=== PATIENT | male | born 1940 | race Caucasian/White ===

== ENCOUNTER 2022-07-17 18:45 | Inpatient (IN) | payer MEDICARE ==
[~2022-07-17] VITALS: Ht 175.3 cm; Wt 68.5 kg
[~2022-07-17 18:45] MED LIST: FLONASE16 GM INH; LEVOTHYROXINE75 MCG PO; METAMUCIL PACK1 EACH PO; MULTI-VITAMIN1 EACH PO; PAXIL10 MG PO; PHENERGAN50 MG/1 ML IM; SENNA LAXATIVE8.6 MG PO; VIAGRA100 MG PO; VITAMIN D400 UNIT PO
[2022-07-17] MEDS ORDERED: ONDANSETRON HCL INJ 2MG/ML 2ML 2 MG/ML VIAL IV STA (19:15)
[2022-07-17 19:25] LABS: BASOPHILS % 0.1 % (0.0-1.0); EOSINOPHILS % 0.2 % (0.0-6.0); HEMATOCRIT 45.5 % (38.2-49.6); HEMOGLOBIN 14.9 g/dL (14.0-18.0); LYMPHOCYTES # (AUTO) 0.3 (1.0-3.2); LYMPHOCYTES % 3.3 % (18.0-39.1); MEAN CORPUSCULAR HEMOGLOBIN 30.8 pg (28-32); MEAN CORPUSCULAR HGB CONC 32.7 g/dL (31-35); MEAN CORPUSCULAR VOLUME 94.2 fL (81-99); MONOCYTES # (AUTO) 0.8 (0.2-0.8); MONOCYTES % 9.9 % (4.4-11.3); NEUTROPHILS # (AUTO) 7.3 (2.1-6.9); PLATELET COUNT 170 x10e3/uL (140-360); RED BLOOD COUNT 4.83 x10e6/uL (4.3-5.7); RED CELL DISTRIBUTION WIDTH 12.4 % (11.7-14.4)
[2022-07-17 19:36] LABS: INR 1.06
[2022-07-17 19:37] LABS: PARTIAL THROMBOPLASTIN TIME 30.1 seconds (23.8-35.5)
[2022-07-17 19:44] LABS: ALBUMIN 4.2 g/dL (3.5-5.0); ALBUMIN/GLOBULIN RATIO 1.8 (0.8-2.0); ANION GAP 13.1 mmol/L (8-16); CALCIUM 9.2 mg/dL (8.4-10.2); CREATININE, SERUM 1.05 mg/dL (0.72-1.25); POTASSIUM 4.1 mmol/L (3.5-5.1)
[2022-07-17 19:52] LABS: CLARITY,URINE CLEAR (CLEAR); COLOR,URINE YELLOW (YELLOW); KETONES,URINE NEGATIVE (NEGATIVE); LEUKOCYTE ESTERASE ,URINE NEGATIVE (NEGATIVE); NITRITE,URINE NEGATIVE (NEGATIVE); PROTEIN,URINE DIPSTICK TRACE (NEGATIVE)
[2022-07-17] MEDS ORDERED: IOPAMIDOL 370 MG/ML 100 ML INFUS..BTL INJ ONE (20:10)
[2022-07-17] MEDS ORDERED: ONDANSETRON HCL INJ 2MG/ML 2ML 2 MG/ML VIAL IV PRN (21:30)
[2022-07-17] MEDS ORDERED: Morphine 2mg Syringe 2 MG/ML SYR IV PRN (21:30)
[2022-07-17] MEDS: SODIUM CHLORIDE 0.9% 1000ML 1,000 ML IV SCH (21:36)
[2022-07-18 05:38] LABS: BASOPHILS % 0.1 % (0.0-1.0); EOSINOPHILS % 0.4 % (0.0-6.0); HEMATOCRIT 44.2 % (38.2-49.6); HEMOGLOBIN 14.4 g/dL (14.0-18.0); LYMPHOCYTES # (AUTO) 0.6 (1.0-3.2); LYMPHOCYTES % 8.6 % (18.0-39.1); MEAN CORPUSCULAR HEMOGLOBIN 30.7 pg (28-32); MEAN CORPUSCULAR HGB CONC 32.6 g/dL (31-35); MEAN CORPUSCULAR VOLUME 94.2 fL (81-99); MONOCYTES # (AUTO) 1.2 (0.2-0.8); NEUTROPHILS # (AUTO) 5.1 (2.1-6.9); NEUTROPHILS % 73.6 % (38.7-80.0); PLATELET COUNT 162 x10e3/uL (140-360); RED BLOOD COUNT 4.69 x10e6/uL (4.3-5.7); RED CELL DISTRIBUTION WIDTH 12.6 % (11.7-14.4)
[2022-07-18 06:00] LABS: ANION GAP 13.4 mmol/L (8-16); CALCIUM 8.8 mg/dL (8.4-10.2); POTASSIUM 4.4 mmol/L (3.5-5.1)
[2022-07-18 08:40] VITALS: BP 123/70
[2022-07-18 09:00] VITALS: BP 123/70
[2022-07-18] MEDS: SODIUM CHLORIDE 0.9% 1000ML 1,000 ML IV SCH ×2 (09:43→21:01)
[2022-07-18 12:09] VITALS: BP 114/59
[2022-07-18 15:11] VITALS: BP 127/68
[2022-07-18] MEDS: FAMOTIDINE 20 MG/2 ML VIAL IV SCH (16:00)
[2022-07-18] MEDS ORDERED: SENNA LAXATIVE8.6 MG PO (19:12)
[2022-07-18 20:00] VITALS: BP 131/76
[2022-07-18] MEDS: LEVOFLOXACIN 500MG/D5W 100ML 100 ML IV SCH (20:58)
[2022-07-19 04:58] LABS: BASOPHILS % 0.4 % (0.0-1.0); EOSINOPHILS % 0.4 % (0.0-6.0); LYMPHOCYTES # (AUTO) 0.5 (1.0-3.2); MEAN CORPUSCULAR VOLUME 88.7 fL (81-99); MONOCYTES # (AUTO) 1.1 (0.2-0.8); MONOCYTES % 24.7 % (4.4-11.3); NEUTROPHILS # (AUTO) 2.8 (2.1-6.9); NEUTROPHILS % 63.3 % (38.7-80.0); PLATELET COUNT 165 x10e3/uL (140-360); RED BLOOD COUNT 4.51 x10e6/uL (4.3-5.7); RED CELL DISTRIBUTION WIDTH 12.9 % (11.7-14.4)
[2022-07-19 05:22] LABS: ALBUMIN/GLOBULIN RATIO 1.3 (0.8-2.0); ANION GAP 13.1 mmol/L (8-16); CALCIUM 8.6 mg/dL (8.4-10.2); CREATININE, SERUM 0.94 mg/dL (0.72-1.25); POTASSIUM 4.1 mmol/L (3.5-5.1)
[2022-07-19] MEDS: DEXTROSE 5%/0.9% SOD CHL 1,000 ML IV SCH ×3 (05:47→21:42)
[2022-07-19 06:07] VITALS: BP 133/72
[2022-07-19 08:10] LABS: BAND NEUTROPHILS % (MANUAL) 1 %; LYMPHOCYTES % (MANUAL) 13 % (19-48); MONOCYTES % (MANUAL) 19 % (3.4-9.0); NEUTROPHILS % (MANUAL) 65 % (40-74); PLATELET ESTIMATE ADEQUATE; PLATELET MORPHOLOGY COMMENT NORMAL; RBC MORPHOLOGY COMMENT NORMAL
[2022-07-19 08:27] VITALS: BP 125/73
[2022-07-19 08:48] VITALS: BP 125/73
[2022-07-19] MEDS: FAMOTIDINE 20 MG/2 ML VIAL IV SCH ×2 (09:19→16:42)
[2022-07-19] MEDS ORDERED: BISACODYL 10 MG SUPP PR ONE (10:00)
[2022-07-19 12:59] VITALS: BP 124/70
[2022-07-19 17:02] VITALS: BP 129/68
[2022-07-19] MEDS: LEVOFLOXACIN 500MG/D5W 100ML 100 ML IV SCH (19:30)
[2022-07-19 20:00] VITALS: BP 148/73
[2022-07-20] VITALS: BP 136/79
[2022-07-20 04:00] VITALS: BP 128/62
[2022-07-20] MEDS: FAMOTIDINE 20 MG/2 ML VIAL IV SCH (08:45)
[2022-07-20] MEDS: DEXTROSE 5%/0.9% SOD CHL 1,000 ML IV SCH (08:46)
[2022-07-20 10:31] VITALS: BP 146/71
[2022-07-20 13:30] VITALS: BP 134/66
[2022-07-20] MEDS ORDERED: CIPRO250 MG PO (14:21)
== END 2022-07-20 16:10 | disposition home or self-care (01) | DRG 389 ==
LOC: ER 19:22 → ERHOLD 21:32 → MED/SURG 07-18 08:37
PROVIDERS: ADMIT Internal Medicine; ATTEND Internal Medicine
DX: K56.600 Partial intestinal obstruction, unspecified as to cause (principal); E87.1 Hypo-osmolality and hyponatremia; K57.90 Diverticulosis of intestine, part unspecified, without perforation or abscess without bleeding; N40.0 Benign prostatic hyperplasia without lower urinary tract symptoms; E86.0 Dehydration; Z20.822 Contact with and (suspected) exposure to COVID-19; F32.A Depression, unspecified; E03.9 Hypothyroidism, unspecified; Z88.1 Allergy status to other antibiotic agents
CPT/HCPCS: 36415; 70450; 71045; 74018; 74022; 74177; 80048; 80053; 81001; 83690; 83735; 84484; 85025; 85610; 85730; 93005; 94660; 94799; 99284; J1956; J2270; J2405; J7030; J7042; Q9967

== ENCOUNTER 2024-04-03 10:13 | Emergency (ER) | payer MEDICARE ==
[~2024-04-03] VITALS: Ht 175.3 cm; Wt 68.5 kg
[~2024-04-03 10:13] MED LIST changes: +CIPRO250 MG PO
[2024-04-03 10:20] VITALS: PULSE 72; RESP 17; TEMP 97.7; O2SAT 98
[2024-04-03] MEDS ORDERED: PREDNISONE50 MG PO (10:45)
[2024-04-03] MEDS ORDERED: VALACYCLOVIR500 MG PO (10:45)
== END 2024-04-03 11:03 | disposition home or self-care (01) ==
LOC: ER 10:20
DX: B02.21 Postherpetic geniculate ganglionitis (principal); E03.9 Hypothyroidism, unspecified; F32.A Depression, unspecified
CPT/HCPCS: 99282